=== PATIENT | female | born 1985 | race Two or more races ===

== ENCOUNTER 2016-09-27 05:05 | Emergency (ER) | payer BC, MEDICAID ==
[~2016-09-27] VITALS: Ht 154.9 cm; Wt 62.1 kg
[2016-09-27 05:50] LABS: Basophils # (auto) 0 uL; Basophils % (auto) 0.1 % (0.0-2.0); DEFINITIVE VIEW TRANSMISSION; Eosinophils # (auto) 0.1 uL; Eosinophils % (auto) 0.4 % (0.0-7.0); Hematocrit 36.9 % (36.0-46.0); Hemoglobin 12.5 g/dL (12.2-16.2); Lymphocytes # (auto) 1.2 uL; Mean Corpuscular Hemoglobin 26.4 pg (28.0-32.0); Mean Corpuscular Hgb Conc. 33.9 g/dL (32.0-36.0); Mean Corpuscular Volume 77.8 fL (80.0-100.0); Mean Platelet Volume 9.4 fL (7.4-10.4); Monocytes # (auto) 0.6 uL; Monocytes % (auto) 3.8 % (0.0-12.0); Neutrophils # (auto) 13.7 uL; Neutrophils % (auto) 87.7 % (37.0-80.0); Platelet Count (auto) 261 10^3/uL (140-450); White Blood Cell 15.6 10^3/uL (4.4-10.8)
[2016-09-27 06:01] LABS: Albumin 3.5 g/dL (3.4-5.0); BUN/Creatinine Ratio 10.3; Calcium 8.2 mg/dL (8.5-10.1); Potassium 3.5 mmol/L (3.5-5.1)
[2016-09-27 06:03] LABS: Bilirubin, Total 0.5 mg/dL (0.2-1.0); Total Protein 6.8 g/dL (6.4-8.2)
[2016-09-27 06:04] LABS: Red Cell Distribution Width 20.5 % (11.6-16.0)
[2016-09-27 06:11] LABS: INR 0.92 (0.9-1.15); Partial Thromboplastin Time 24.3 sec (22.64-33.71); Prothrombin Time 9.9 sec (9.37-12.3)
[2016-09-27 06:45] LABS: Anisocytosis Slight; Platelet Estimate Adequate
[2016-09-27] MEDS ORDERED: SODIUM CHLORIDE 0.9% 1,000 ML IV ONE (07:15)
[2016-09-27] MEDS ORDERED: cefTRIAXone 1GM/50ML D5W 50 ML IV ONE (07:15)
[2016-09-27 11:25] VITALS: BP 90/68
== END 2016-09-27 11:29 | disposition home or self-care (01) ==
LOC: ER 05:05
DX: O03.9 Complete or unspecified spontaneous abortion without complication (principal); Z3A.22 22 weeks gestation of pregnancy
CPT/HCPCS: 36415; 76801; 80053; 84702; 85025; 85610; 85730; 86850; 86900; 86901; 87040; 88304; 96365; 99285; J0696; J7030